=== PATIENT | male | born 1960 | race Caucasian/White ===

== ENCOUNTER 2017-11-06 20:56 | Emergency (ER) | payer OTHER, MEDICARE ==
[2017-11-06] MEDS ORDERED: methylPREDNISolone Sodium Succinate 125 MG/2 ML SDV IVPUSH ONE (21:05)
[2017-11-06] MEDS ORDERED: diphenhydrAMINE 50 MG/ML SDV IVPUSH ONE (21:06)
[2017-11-06] MEDS ORDERED: EPINEPHrine 1 MG/ML SDV IM ONE (21:08)
[2017-11-06 21:11] VITALS: BP 144/83
[2017-11-06 21:39] LABS: ANION GAP 16.2; CHLORIDE,CL 97 mmol/L (101-111); SODIUM,NA 134 mmol/L (135-145)
--- NOTE | 2017-11-06 21:53 | EDM.PDOC ---
ED HPI GENERAL MEDICAL PROBLEM - General Chief Complaint: Allergic Reaction Stated Complaint: BAD REACTION TO MEDS [id number] Time Seen by Provider: 11/06/17 21:00 Source of Information: Reports: Patient History Limitations: Reports: No Limitations - History of Present Illness INITIAL COMMENTS - FREE TEXT/NARRATIVE: ED with c/o allergic reaction to Metformin, reports itching after first dose, thought ti was just part of getting used to medication, started to increase over weekend and tonight, trouble breathing and hoarse voice. Treatments CLINICAL BIOCHEMICAL GENETICIST: Reports: Other (see below) Other Treatments CLINICAL BIOCHEMICAL GENETICIST: Benadryl - Related Data Allergies Allergy/AdvReac Type Severity Reaction Status Date / Time acetaminophen Allergy Stomach Verified 11/06/17 21:01 [From Tylenol-Codeine #3] Upset codeine phosphate Allergy Stomach Verified 11/06/17 21:01 [From Tylenol-Codeine #3] Upset duloxetine [Duloxetine] Allergy Cannot Verified 11/06/17 21:01 Remember duloxetine HCl Allergy Irritabilit Verified 11/06/17 21:01 [From Cymbalta] y gabapentin Allergy Hyperactivi Verified 11/06/17 21:01 ty lactose Allergy Indigestion Verified 11/06/17 21:01 metformin Allergy Difficulty Verified 11/06/17 21:29 Breathing milk Allergy Diarrhea Verified 11/06/17 21:01 rofecoxib Allergy Cannot Verified 11/06/17 21:01 Remember calcium-containing cmpd Allergy Cannot Uncoded 11/06/17 21:01 Remember walnuts Allergy Itching Uncoded 11/06/17 21:01 Home Meds: Home Meds Lisinopril 1 tab PO DAILY 04/05/13 [History] Pantoprazole [Protonix] 40 mg PO BID 04/05/13 [History] Baclofen 10 mg PO BID 12/16/13 [History] Lidocaine 5% [Lidoderm 5%] 700 mg TOP DAILY PRN 04/05/15 [History] oxyCODONE HCl/Acetaminophen [Percocet 10-325 mg Tablet] 1 tab PO Q4H PRN [History] Past Medical History HEENT History: Reports: Impaired Vision Other HEENT History: WEARS CORRECTIVE LENSES Cardiovascular History: Reports: High Cholesterol, Hypertension Other Cardiovascular History: DYSLIPIDEMIA Respiratory History: Reports: Sleep Apnea Gastrointestinal History: Reports: GERD, Hemorrhoids, Other (See Below) Other Gastrointestinal History: ESOPHAGEAL STENOSIS; PARKINSON'S ESOPHAGUS Genitourinary History: Reports: Other (See Below) Other Genitourinary History: CALCIUM NEPHROLITHIASIS Musculoskeletal History: Reports: Other (See Below) Other Musculoskeletal History: MULTIPLE TRAUMA, MULTIPLE FRACTURES, DDD L4-5 & L5-S1, LUMBAR SPONDYLOSIS, FACET HYPERTROPHY OF L4-5 & L5-S1 Neurological History: Reports: Concussion Psychiatric History: Reports: None Other Psychiatric History: Difficulty in sleeping Endocrine/Metabolic History: Reports: None Hematologic History: Reports: Blood Transfusion(s) Immunologic History: Reports: None Oncologic (Cancer) History: Reports: None Dermatologic History: Reports: None - Infectious Disease History Infectious Disease History: Reports: Chicken Pox, Measles, Mumps - Past Surgical History Head Surgeries/Procedures: Reports: None Male Surgical History: Reports: Lithotripsy (ESWL), Other (See Below) Endocrine Surgical History: Reports: None Neurological Surgical History: Reports: None Other Neurological Surgeries/Procedures: DEGENERATIVE DISK DISEASE AT L4-5 AND L5-S1, FACET HYPERTROPHY OF LUMBAR L 4-5 AND L5-S1 Musculoskeletal Surgical History: Reports: Arthroscopic Knee, Shoulder Surgery, Other (See Below) Oncologic Surgical History: Reports: None Social & Family History - Family History Family Medical History: Noncontributory - Tobacco Use Smoking Status *Q: Current Every Day Smoker Years of Tobacco use: 5 Packs/Tins Daily: 10 - Caffeine Use Caffeine Use: Reports: Coffee, Soda, Tea - Recreational Drug Use Recreational Drug Use: No - Living Situation & Occupation Occupation: Disabled ED ROS ALLERGIC REACTION - Review of Systems Review Of Systems: ROS reveals no pertinent complaints other than HPI. ED EXAM GENERAL NO PERIP PULSE - Physical Exam Exam: See Below Exam Limited By: No Limitations General Appearance: Alert, Anxious, Mild Distress (able to talk full sentences, scratching at arms and thighs), Obese (morbid) Eye Exam: Bilateral Eye: EOMI Ears: Normal External Exam Nose: Normal Inspection Throat/Mouth: Normal Inspection. No: Normal Voice Head: Atraumatic, Normocephalic Neck: Normal Inspection Respiratory/Chest: Decreased Breath Sounds. No: Respiratory Distress, Rales, Rhonchi, Wheezing Cardiovascular: Normal Peripheral Pulses, Bradycardia GI/Abdominal: Normal Bowel Sounds Neurological: Alert, Oriented, Normal Cognition Psychiatric: Anxious Skin Exam: Warm, Dry, Rash (urticarial, kuldeep hives upper extremities and back, lower extremities large patches of hives. ) Course - Vital Signs Last Recorded V/S: Last Vital Signs Temp 97.1 F 11/06/17 21:00 Pulse 99 11/06/17 21:00 Resp 24 H 11/06/17 21:00 BP 144/83 H 11/06/17 21:00 Pulse Ox 98 11/06/17 21:00 - Orders/Labs/Meds Orders: Active Orders 24 hr Category Date Time Status Glucose [Blood Glucose Check, Bedside] [RC] ONETIME Care 11/06/17 21:05 Ordered B-TYPE NATRIURETIC PEPTIDE,BNP [CHEM] Stat Lab 11/06/17 21:04 Ordered COMPREHENSIVE METABOLIC PN,CMP [CHEM] Stat Lab 11/06/17 21:04 Ordered Labs: Laboratory Tests 11/06/17 11/06/17 11/06/17 Range/Units 21:13 21:13 21:13 WBC 8.9 (5.0-10.0) 10^3/uL RBC 4.84 (4.6-6.2) 10^6/uL Hgb 16.3 (14.0-18.0) g/dL Hct 48.6 (40.0-54.0) % MCV 100.4 H (80-100) fL MCH 33.7 (27.0-34.0) pg MCHC 33.5 (33.0-35.0) g/dL Plt Count 218 (150-450) 10^3/uL Neut % (Auto) 52.9 (42.2-75.2) % Lymph % (Auto) 37.4 (20.5-50.1) % Dixie % (Auto) 7.5 (2-8) % Eos % (Auto) 1.9 (1.0-3.0) % Baso % (Auto) 0.3 (0.0-1.0) % Sodium 134 L (135-145) mmol/L Potassium 4.2 (3.6-5.0) mmol/L Chloride 97 L (101-111) mmol/L Carbon Dioxide 25.0 (21.0-31.0) mmol/L Anion Gap 16.2 BUN 10 (7-18) mg/dL Creatinine 1.1 (0.6-1.3) mg/dL Est Cr Clr Drug Dosing 78.91 mL/min Estimated GFR (MDRD) > 60 BUN/Creatinine Ratio 9.09 Glucose 126 H (74-105) mg/dL POC Glucose (70-105) mg/dl Lactic Acid 2.3 H (0.5-2.2) mmol/L Calcium 9.1 (8.4-10.2) mg/dl Total Bilirubin 0.7 (0.2-1.0) mg/dL AST 78 H (10-42) IU/L ALT 61 H (10-60) IU/L Alkaline Phosphatase 73 (42-121) IU/L Total Protein 7.1 (6.7-8.2) g/dl Albumin 3.8 (3.2-5.5) g/dl Globulin 3.3 Albumin/Globulin Ratio 1.15 // Range/Units 21:17 WBC (5.0-10.0) 10^3/uL RBC (4.6-6.2) 10^6/uL Hgb (14.0-18.0) g/dL Hct (40.0-54.0) % MCV (80-100) fL MCH (27.0-34.0) pg MCHC (33.0-35.0) g/dL Plt Count (150-450) 10^3/uL Neut % (Auto) (42.2-75.2) % Lymph % (Auto) (20.5-50.1) % Dixie % (Auto) (2-8) % Eos % (Auto) (1.0-3.0) % Baso % (Auto) (0.0-1.0) % Sodium (135-145) mmol/L Potassium (3.6-5.0) mmol/L Chloride (101-111) mmol/L Carbon Dioxide (21.0-31.0) mmol/L Anion Gap BUN (7-18) mg/dL Creatinine (0.6-1.3) mg/dL Est Cr Clr Drug Dosing mL/min Estimated GFR (MDRD) BUN/Creatinine Ratio Glucose (74-105) mg/dL POC Glucose 119 H (70-105) mg/dl Lactic Acid (0.5-2.2) mmol/L Calcium (8.4-10.2) mg/dl Total Bilirubin (0.2-1.0) mg/dL AST (10-42) IU/L ALT (10-60) IU/L Alkaline Phosphatase (42-121) IU/L Total Protein (6.7-8.2) g/dl Albumin (3.2-5.5) g/dl Globulin Albumin/Globulin Ratio Meds: Medications Discontinued Medications Generic Name Dose Route Start Last Admin Trade Name Stephane PRN Reason Stop Dose Admin Diphenhydramine HCl 25 mg 11/06/17 21:06 11/06/17 21:11 Benadryl IVPUSH 11/06/17 21:07 25 mg ONETIME ONE Administration Epinephrine HCl 0.3 mg 11/06/17 21:08 11/06/17 21:13 Adrenalin IM 11/06/17 21:09 0.3 mg ONETIME ONE Administration Methylprednisolone Sodium Succinate 125 mg 11/06/17 21:05 11/06/17 21:11 Solu-Medrol IVPUSH 11/06/17 21:06 125 mg ONETIME ONE Administration - Re-Assessments/Exams Free Text/Narrative Re-Assessment/Exam: Itching resolved, breathing improved. . Departure - Departure Time of Disposition: 21:53 Disposition: Home, Self-Care 01 Condition: Good Clinical Impression: Adverse drug reaction Qualifiers: Encounter type: initial encounter Qualified Code(s): T50.905A - Adverse effect of unspecified drugs, medicaments and biological substances, initial encounter Allergic reaction caused by a drug Qualifiers: Encounter type: initial encounter Qualified Code(s): T78.40XA - Allergy, unspecified, initial encounter - Discharge Information *PRESCRIPTION DRUG MONITORING PROGRAM REVIEWED*: Not Applicable Instructions: Drug Allergy Additional Instructions: Stop Metformin follow up in clinic this week prednisone 40mg x 2 dasys, 30mg x 2 days, 20mg x 2 days, 10mg x 2 days Benadryl 25-50mg every 4 hours as needed for itching Urgent follow up if worsening of symptoms - My Orders Last 24 Hours: My Active Orders 11/06/17 21:04 B-TYPE NATRIURETIC PEPTIDE,BNP [CHEM] Stat COMPREHENSIVE METABOLIC PN,CMP [CHEM] Stat 11/06/17 21:05 Glucose [Blood Glucose Check, Bedside] [RC] ONETIME - Assessment/Plan Last 24 Hours: My Active Orders 11/06/17 21:04 B-TYPE NATRIURETIC PEPTIDE,BNP [CHEM] Stat COMPREHENSIVE METABOLIC PN,CMP [CHEM] Stat 11/06/17 21:05 Glucose [Blood Glucose Check, Bedside] [RC] ONETIME
== END 2017-11-06 22:03 | disposition home or self-care (01) ==
LOC: DL.ED 20:56
DX: L50.0 Allergic urticaria (principal); R06.89 Other abnormalities of breathing; T38.3X5A Adverse effect of insulin and oral hypoglycemic [antidiabetic] drugs, initial encounter; I10 Essential (primary) hypertension; E66.01 Morbid (severe) obesity due to excess calories; F17.210 Nicotine dependence, cigarettes, uncomplicated; Z91.011 Allergy to milk products; Z91.018 Allergy to other foods; Z79.899 Other long term (current) drug therapy; Z88.5 Allergy status to narcotic agent
CPT/HCPCS: 36415; 80053; 82962; 83605; 83880; 85025; 96372; 96374; 96375; 99285; J0171; J1200; J2930

== ENCOUNTER 2018-03-07 10:23 | Emergency (ER) | payer MEDICARE, OTHER ==
[2018-03-07 10:36] VITALS: BP 125/98
--- NOTE | 2018-03-07 12:14 | EDM.PDOC ---
ED HPI GENERAL MEDICAL PROBLEM - General Chief Complaint: Respiratory Problem Stated Complaint: BAD RIB PAIN DUE TO COUGHING Time Seen by Provider: 03/07/18 11:03 Source of Information: Reports: Patient, RN, RN Notes Reviewed History Limitations: Reports: No Limitations - History of Present Illness INITIAL COMMENTS - FREE TEXT/NARRATIVE: Patient presents to emergency room with complaint of pain in left ribs. Patient states he feels he cracked a rib by coughing. Patient states occurred last night between 5-6 p.m. HE took a Percocet that he found at home. Onset Date: 03/06/18 Duration: Getting Worse Location: Reports: Chest Quality: Reports: Ache Severity: Moderate Improves with: Reports: None Worsens with: Reports: None Associated Symptoms: Reports: No Other Symptoms Left Pain Score (Numeric/FACES): 7 - Related Data Allergies Allergy/AdvReac Type Severity Reaction Status Date / Time acetaminophen Allergy Stomach Verified 03/07/18 10:37 [From Tylenol-Codeine #3] Upset codeine phosphate Allergy Stomach Verified 03/07/18 10:37 [From Tylenol-Codeine #3] Upset duloxetine [Duloxetine] Allergy Cannot Verified 03/07/18 10:37 Remember duloxetine HCl Allergy Irritabilit Verified 03/07/18 10:37 [From Cymbalta] y gabapentin Allergy Hyperactivi Verified 03/07/18 10:37 ty lactose Allergy Indigestion Verified 03/07/18 10:37 macadamia nut oil Allergy Anaphylactic Verified 03/07/18 10:37 Shock metformin Allergy Difficulty Verified 03/07/18 10:37 Breathing milk Allergy Diarrhea Verified 03/07/18 10:37 rofecoxib Allergy Cannot Verified 03/07/18 10:37 Remember calcium-containing cmpd Allergy Cannot Uncoded 03/07/18 10:37 Remember walnuts Allergy Itching Uncoded 03/07/18 10:37 Home Meds: Home Meds Lisinopril 1 tab PO DAILY 04/05/13 [History] Pantoprazole [Protonix] 40 mg PO DAILY 04/05/13 [History] Baclofen 10 mg PO BID PRN 12/16/13 [History] Lidocaine 5% [Lidoderm 5%] 700 mg TOP DAILY PRN 04/05/15 [History] Past Medical History HEENT History: Reports: Impaired Vision Other HEENT History: WEARS CORRECTIVE LENSES Cardiovascular History: Reports: High Cholesterol, Hypertension Other Cardiovascular History: DYSLIPIDEMIA Respiratory History: Reports: Sleep Apnea Gastrointestinal History: Reports: GERD, Hemorrhoids, Other (See Below) Other Gastrointestinal History: ESOPHAGEAL STENOSIS; PARKINSON'S ESOPHAGUS Genitourinary History: Reports: Other (See Below) Other Genitourinary History: CALCIUM NEPHROLITHIASIS Musculoskeletal History: Reports: Back Pain, Chronic, Other (See Below) Other Musculoskeletal History: MULTIPLE TRAUMA, MULTIPLE FRACTURES, DDD L4-5 & L5-S1, LUMBAR SPONDYLOSIS, FACET HYPERTROPHY OF L4-5 & L5-S1 Neurological History: Reports: Concussion Psychiatric History: Reports: None Other Psychiatric History: Difficulty in sleeping Endocrine/Metabolic History: Reports: None Hematologic History: Reports: Blood Transfusion(s) Immunologic History: Reports: None Oncologic (Cancer) History: Reports: None Dermatologic History: Reports: None - Infectious Disease History Infectious Disease History: Reports: Chicken Pox, Measles, Mumps - Past Surgical History Head Surgeries/Procedures: Reports: None Male Surgical History: Reports: Lithotripsy (ESWL), Other (See Below) Endocrine Surgical History: Reports: None Neurological Surgical History: Reports: None Other Neurological Surgeries/Procedures: DEGENERATIVE DISK DISEASE AT L4-5 AND L5-S1, FACET HYPERTROPHY OF LUMBAR L 4-5 AND L5-S1 Musculoskeletal Surgical History: Reports: Arthroscopic Knee, Shoulder Surgery, Other (See Below) Oncologic Surgical History: Reports: None Social & Family History - Family History Family Medical History: Noncontributory - Tobacco Use Smoking Status *Q: Current Every Day Smoker Years of Tobacco use: 5 Packs/Tins Daily: 0.5 Second Hand Smoke Exposure: No - Caffeine Use Caffeine Use: Reports: Coffee, Soda - Recreational Drug Use Recreational Drug Use: No - Living Situation & Occupation Occupation: Disabled ED ROS GENERAL - Review of Systems Review Of Systems: ROS reveals no pertinent complaints other than HPI. ED EXAM, GENERAL - Physical Exam Exam: See Below Exam Limited By: No Limitations General Appearance: Alert, WD/WN, No Apparent Distress Eye Exam: Bilateral Eye: EOMI, Normal Inspection, PERRL Ears: Normal External Exam, Normal Canal, Hearing Grossly Normal, Normal TMs Nose: Normal Inspection, Normal Mucosa, No Blood Throat/Mouth: Normal Inspection, Normal Lips, Normal Teeth, Normal Gums, Normal Oropharynx, Normal Voice, No Airway Compromise Head: Atraumatic, Normocephalic Neck: Normal Inspection, Supple, Non-Tender, Full Range of Motion Respiratory/Chest: Other (clear diminished breath sounds. Tender left lateral lower ribs with splinting.) Cardiovascular: Normal Peripheral Pulses, Regular Rate, Rhythm, No Edema, No Gallop, No JVD, No Murmur, No Rub GI/Abdominal: Other (large) (Male) Exam: Deferred Rectal (Males) Exam: Deferred Back Exam: Normal Inspection, Full Range of Motion, NT Extremities: Other (pain in left ribs) Neurological: Alert Psychiatric: Normal Affect, Normal Mood Skin Exam: Warm, Dry, Intact, Normal Color, No Rash Lymphatic: No Adenopathy Course - Vital Signs Last Recorded V/S: Last Vital Signs Temp 96.1 F 03/07/18 10:29 Pulse 98 03/07/18 10:29 Resp 18 03/07/18 10:29 BP 125/98 H 03/07/18 10:29 Pulse Ox 97 03/07/18 10:29 - Radiology Interpretation Free Text/Narrative:: Ribs (L) with chest xray: FINDINGS: Lungs: No acute lung consolidation or pulmonary edema. There are bilateral nipple shadows. Pleural space: No pleural effusion or pneumothorax. Heart/Mediastinum: The heart is not enlarged. The mediastinal contours are normal. Bones/joints: No acute osseous abnormality. Other findings: There is a small left epicardial fat pad. IMPRESSION: No acute abnormality. Thank you for allowing us to participate in the care of your patient. Dictated and Authenticated by: Azeem Sanford MD 03/07/2018 11:52 AM Central Time ([place] & [place]) See rad report Departure - Departure Time of Disposition: 12:09 Disposition: Home, Self-Care 01 Condition: Fair Clinical Impression: Chest wall pain Contusion of rib on left side Qualifiers: Encounter type: initial encounter Qualified Code(s): S20.212A - Contusion of left front wall of thorax, initial encounter - Discharge Information *PRESCRIPTION DRUG MONITORING PROGRAM REVIEWED*: No *COPY OF PRESCRIPTION DRUG MONITORING REPORT IN PATIENT NICK: No Instructions: Chest Wall Pain, [id number], Contusion, [id number], Nonspecific Chest Pain, [id number] Referrals: Stefan Magallanes, LALY [Primary Care Provider] - Forms: ED Department Discharge Additional Instructions: Use Incentive Spirometry as directed Splint when coughing, sitting up, with movement Follow up with your primary care facility RX: Percocet
== END 2018-03-07 12:26 | disposition home or self-care (01) ==
LOC: DL.ED 10:23
DX: S20.212A Contusion of left front wall of thorax, initial encounter (principal); I10 Essential (primary) hypertension; F17.210 Nicotine dependence, cigarettes, uncomplicated; Z88.5 Allergy status to narcotic agent; Z88.8 Allergy status to other drugs, medicaments and biological substances; Z91.011 Allergy to milk products; Z91.018 Allergy to other foods; Z79.899 Other long term (current) drug therapy; X58.XXXA Exposure to other specified factors, initial encounter
CPT/HCPCS: 71101-LT; 99284

== ENCOUNTER → 2018-06-27 | Outpatient (CLI) | payer MEDICARE, OTHER ==
[~2018-06-27] MED LIST: Barium Sulfate 60% w/v Susp 355 ML Bottle PO ONE
--- NOTE | 2018-06-30 08:11 | CR ---
CLINICAL HISTORY: 57-year-old, morbidly obese, male with dysphagia and clinical diagnosis "Acevedo's esophagus". INTERPRETATION: 1. Normal initiation swallow and barium tablet dropped rapidly to the gastroesophageal juncture; transient barium tablet "hang up" at the GE junction but tablet subsequently passed with a second swallow of water. Significance? 2. Normal esophageal lumen down to the GE junction without sign of web, diverticulum, or mucosal ulceration. 3. No tertiary contractions. No intrinsic or extrinsic esophageal mass lesion. 4. Sliding hiatus hernia (patient rolling supine) but without demonstrable reflux at this time. 5. Focal transition at the GE junction with fixed thin lumen (stricture) distal esophagus and, although no mucosal destruction or mass effect distal esophagus, the progression of the tablet was transiently impeded. CONCLUSION: No mucosal ulceration or tumor mass but suggestion of distal esophageal stricture (see above). Clinical?
== END ==
LOC: DL.DI 08:54
PROVIDERS: ATTEND Otolaryngology Otolaryngology/Facial Plastic Surgery
DX: R13.14 Dysphagia, pharyngoesophageal phase (principal)
CPT/HCPCS: 74220

== ENCOUNTER 2018-07-23 06:12 | Day surgery (SDC) | payer MEDICARE ==
[~2018-07-23 06:12] MED LIST changes: -Barium Sulfate 60% w/v Susp 355 ML Bottle PO ONE; +Dextrose 5%-0.45% NaCl 1,000 ML IV SCH; +Midazolam 1 MG/ML 2 ML SDV ONE; +Sodium Chloride 0.9% 10 ML Syringe FLUSH PRN
[2018-07-23] MEDS ORDERED: fentaNYL 100 MCG/2 ML SDV ONE (06:13)
[2018-07-23] MEDS ORDERED: fentaNYL 100 MCG/2 ML SDV IV ONE ×3 (06:13→07:30)
[2018-07-23] MEDS ORDERED: Midazolam 1 MG/ML 2 ML SDV IV ONE ×3 (06:13→07:31)
--- NOTE | 2018-07-23 08:34 | OR ---
DATE: 07/23/2018 PROCEDURE PERFORMED: Esophagogastroduodenoscopy, NBI and multiple pinch biopsies. INSTRUMENT USED: [id number]-HQ190 Olympus video panendoscope. PREMEDICATIONS: No oral or topical anesthesia used. Fentanyl 100 mcg intravenous and Versed 2 mg intravenous. Nasal O2 cannula. The procedure was done under pulse oximetry, BP recording, and mannequin mounter. INDICATION: The patient with intermittent solid dysphagia long-term, more pronounced recently, had previous food impaction in the esophagus. Esophagogastroduodenoscopy is performed for detection of any active erosive lesions, esophageal eosinophilia also under consideration, biopsies to be obtained, endoscopic hemostasis therapy if needed, esophageal dilatations if indicated. DESCRIPTION OF PROCEDURE: The scope was passed with ease. Adequate visualization of the esophagus was made from proximal to distal areas. No upper esophageal lesions identified. No distal esophageal stricture. No uphill or downhill esophageal varices. No Corinne-Giron tear. No evidence of erosive esophagitis by Clare criteria. No esophageal polyp or tumor mass identified. Z-line was seen at around 40 cm distal to the oral verge, configuration consistent with grade 1 by ZAP classification. There was suggestion of esophageal rings, NBI views were obtained. Four-quadrant biopsies were taken from the distal and mid esophagus and sent for any histopathologic evidence of esophageal eosinophilia. No proximal gastric varices noted. Gastric fundus examination by retroflexion showed no polypoid lesions. No gastric ulcer, malignant mass, or vascular ectasia identified. Duodenal bulb showed no ulcer. Visualized second part of the duodenum was unremarkable. No bleeding was noted from any of other visualized areas at the completion of examination. Photographs were taken of the duodenal bulb, gastric antrum, fundus, and distal esophagus. No bleeding was noted from any of the visualized areas at the completion of examination. IMPRESSION: Normal study. The patient tolerated the procedure well. [facility] /[id number]
--- NOTE | 2018-07-23 09:03 | LETTER ---
07/23/2018 Delvin Sosa DO [facility] [address] [facility] [place] [address] RE: BESSMONTSE ANDREA : [address] Sosa: Mr. Montse Zabala had esophagogastroduodenoscopy done this morning and he tolerated the procedure well. I herewith send a copy of the endoscopy note and photographs for your review. Thank you. Sincerely, [facility] /[id number]
[2018-07-23 09:10] VITALS: BP 130/78
== END 2018-07-23 09:45 | disposition home or self-care (01) ==
LOC: DL.ENDO 06:12
PROVIDERS: ATTEND Internal Medicine Gastroenterology
DX: K20.9 Esophagitis, unspecified (principal); K22.70 Barrett's esophagus without dysplasia; F17.210 Nicotine dependence, cigarettes, uncomplicated; I10 Essential (primary) hypertension; M19.90 Unspecified osteoarthritis, unspecified site; M54.5 Low back pain; E78.5 Hyperlipidemia, unspecified; G47.30 Sleep apnea, unspecified; F12.90 Cannabis use, unspecified, uncomplicated; E66.01 Morbid (severe) obesity due to excess calories; Z68.42 Body mass index [BMI] 45.0-49.9, adult; Z79.82 Long term (current) use of aspirin; Z88.8 Allergy status to other drugs, medicaments and biological substances; Z88.1 Allergy status to other antibiotic agents; Z91.011 Allergy to milk products; Z88.5 Allergy status to narcotic agent; Z91.018 Allergy to other foods
CPT/HCPCS: 43239; J2250; J3010; J7042

== ENCOUNTER 2020-02-11 07:10 | Day surgery (SDC) | payer MEDICARE ==
[~2020-02-11 07:10] MED LIST changes: -Dextrose 5%-0.45% NaCl 1,000 ML IV SCH; -Sodium Chloride 0.9% 10 ML Syringe FLUSH PRN; +fentaNYL 100 MCG/2 ML SDV ONE
[2020-02-11] MEDS ORDERED: fentaNYL 100 MCG/2 ML SDV IV ONE ×3 (07:11→08:37)
[2020-02-11] MEDS ORDERED: Midazolam 1 MG/ML 2 ML SDV IV ONE ×7 (07:11→08:43)
[2020-02-11] MEDS ORDERED: Dextrose 5%-0.45% NaCl 1,000 ML IV SCH (07:47)
--- NOTE | 2020-02-11 09:48 | OR ---
DATE: 02/11/2020 PROCEDURES: Total colonoscopy and multiple cold snare polypectomies. INSTRUMENT USED: [id number] Olympus video colonoscope. PREMEDICATIONS: Fentanyl 100 mcg intravenous, Versed 4 mg intravenous, nasal O2 cannula. The procedure was done under pulse oximetry, BP recording, and cardiac monitor technician. INDICATION: The patient with rectal bleeding. Colonoscopic examination is done for detection of any polypoid lesions and removal, endoscopic hemostasis therapy if needed. DESCRIPTION OF PROCEDURE: Initial rectal exam showed diminutive benign- appearing distal rectal polyp and small internal hemorrhoids without bleeding from them. The colonoscope was passed with ease. Photographs were taken of the sigmoid area showing diminutive polyp, cold snare polypectomy was done, the tissues were retrieved and sent for histopathology. Diminutive polyps, 2 in number, were noted in the distal and proximal rectum, removed by cold biopsy forceps. Numerous scattered diverticula were noted in the distal left colon along with deformity. The scope was passed with ease up to the ileocecal area. Photographs were taken of the normal-appearing cecum, identified by landmarks of appendiceal orifice and double-bulged ileocecal folds. No bleeding was noted from any of the visualized areas at the commencement of the examination. The bowel preparation was found to be adequate, Cerro scale 2 in all the regions, total score 6. No stricture. No vascular ectasia. No large isolated ulcerations seen. No evidence of diffuse inflammatory bowel disease in the form of friability, contact bleeding, or ulcerations. Probing the proximal sides of folds and flexures using adequate distention and clearing up the stool material, withdrawal of the scope was made. In the distal descending colon, 3 mm sized benign-appearing polyp was noted, cold snare polypectomy was done, the tissue was retrieved and sent for histopathology. No bleeding was noted from any of the visualized areas at the completion of examination. IMPRESSION: 1. Internal hemorrhoids. 2. Diverticulosis. 3. Multiple colonic polyps. The patient tolerated the procedure well. [facility] /[id number]
[2020-02-11 12:31] VITALS: BP 129/76; PULSE 78
== END 2020-02-11 11:10 | disposition home or self-care (01) ==
LOC: DL.ENDO 07:10
PROVIDERS: ATTEND Internal Medicine Gastroenterology
DX: D12.4 Benign neoplasm of descending colon (principal); K62.1 Rectal polyp; K57.31 Diverticulosis of large intestine without perforation or abscess with bleeding; K64.8 Other hemorrhoids; E66.01 Morbid (severe) obesity due to excess calories; I10 Essential (primary) hypertension; J44.9 Chronic obstructive pulmonary disease, unspecified; K21.9 Gastro-esophageal reflux disease without esophagitis; F17.200 Nicotine dependence, unspecified, uncomplicated; Z79.899 Other long term (current) drug therapy; Z68.42 Body mass index [BMI] 45.0-49.9, adult
CPT/HCPCS: 45380; 45385; J2250; J3010; J7042; 88305